=== PATIENT | female | born 1955 | race Caucasian/White ===

== ENCOUNTER → 2017-10-20 08:53 | Outpatient (CLI) | payer MEDICARE, SELFPAY ==
[2017-10-20 10:45] LABS: Cholesterol 150 mg/dL (200); Glucose 179 mg/dL (74-106); High Density Lipoprotein 40 mg/dL; Triglycerides 155 mg/dL; Very Low Density Lipoprotein 31 mg/dL (5-40)
== END ==
PROVIDERS: Family Provider Family Medicine; PCP Family Medicine; Visit Provider Family Medicine
DX: E11.9 Type 2 diabetes mellitus without complications (principal); E78.00 Pure hypercholesterolemia, unspecified
CPT/HCPCS: 36415; 80061; 82947; 83036

== ENCOUNTER 2018-01-29 12:46 | Outpatient (RCR) | payer MEDICARE, SELFPAY | END 2018-01-29 23:59 | LOC: DC 12:46 | PROVIDERS: Family Provider Family Medicine; PCP Family Medicine; Visit Provider Family Medicine | DX: E11.9 Type 2 diabetes mellitus without complications (principal); E78.00 Pure hypercholesterolemia, unspecified; Z71.3 Dietary counseling and surveillance | CPT/HCPCS: G0108 ==

== ENCOUNTER → 2018-11-06 08:03 | Outpatient (CLI) | payer MEDICARE, SELFPAY ==
[2018-11-06 10:26] LABS: Anion Gap 6 (5-15); BUN 11 mg/dL (7-18); BUN/Creat Ratio 12.3 RATIO (10-20); Calcium,Total 8.8 mg/dL (8.5-10.1); Chloride 108 mmol/L (98-107); Cholesterol 150 mg/dL (200); EST Glomerular Filtration Rate 67 mL/min (>60); Est Glom Filt Rate - Afr Amer 82 mL/min (>60); Glucose 144 mg/dL (74-106); Hemoglobin A1c 6.2 % (4.2-6.3); High Density Lipoprotein 40 mg/dL; Potassium 4.1 mmol/L (3.5-5.1); Sodium Level 140 mmol/L (136-145); Triglycerides 152 mg/dL; Very Low Density Lipoprotein 30 mg/dL (5-40)
== END ==
PROVIDERS: Family Provider Family Medicine; PCP Family Medicine; Referring Provider Family Medicine; Visit Provider Family Medicine
DX: E11.9 Type 2 diabetes mellitus without complications (principal); E78.00 Pure hypercholesterolemia, unspecified
CPT/HCPCS: 36415; 80048; 80061; 83036

== ENCOUNTER → 2019-05-06 07:27 | Outpatient (CLI) | payer MEDICARE, SELFPAY ==
[2019-05-06 10:39] LABS: AST(SGOT) 20 U/L (15-37); Alanine Aminotransfer ALT/SGPT 34 U/L (13-56); Albumin, Serum 3.7 g/dL (3.2-5.0); Alkaline Phosphatase 108 U/L (45-117); Anion Gap 5 (5-15); BUN 14 mg/dL (7-18); BUN/Creat Ratio 14.7 RATIO (10-20); Calcium,Total 8.9 mg/dL (8.5-10.1); Chloride 107 mmol/L (98-107); Creatinine, Serum 0.95 mg/dL (0.55-1.02); EST Glomerular Filtration Rate 63 mL/min (>60); Est Glom Filt Rate - Afr Amer 76 mL/min (>60); Globulin 3.7 g/dL (2.2-4.2); Glucose 145 mg/dL (74-106); Potassium 4.1 mmol/L (3.5-5.1); Protein, Total 7.4 g/dL (6.4-8.2); Sodium Level 140 mmol/L (136-145)
[2019-05-06 10:43] LABS: Hemoglobin A1c 6.1 % (4.2-6.3)
== END ==
PROVIDERS: Family Provider Family Medicine; PCP Family Medicine; Referring Provider Family Medicine; Visit Provider Family Medicine
DX: E11.9 Type 2 diabetes mellitus without complications (principal)
CPT/HCPCS: 36415; 80053; 83036

== ENCOUNTER → 2020-02-03 08:52 | Outpatient (CLI) | payer MEDICARE, SELFPAY ==
[2020-02-03 10:18] LABS: ALB/GLOB Ratio 0.9 RATIO (0.9-2.4); AST(SGOT) 21 U/L (15-37); Alanine Aminotransfer ALT/SGPT 27 U/L (13-56); Albumin, Serum 3.5 g/dL (3.2-5.0); Alkaline Phosphatase 103 U/L (45-117); Anion Gap 4 (5-15); BUN 12 mg/dL (7-18); Calcium,Total 8.7 mg/dL (8.5-10.1); Chloride 106 mmol/L (98-107); Cholesterol 172 mg/dL (200); Creatinine, Serum 0.86 mg/dL (0.55-1.02); EST Glomerular Filtration Rate 71 mL/min (>60); Est Glom Filt Rate - Afr Amer 86 mL/min (>60); Glucose 154 mg/dL (74-106); High Density Lipoprotein 41 mg/dL; Protein, Total 7.5 g/dL (6.4-8.2); Sodium Level 140 mmol/L (136-145); Triglycerides 155 mg/dL; Very Low Density Lipoprotein 31 mg/dL (5-40)
[2020-02-03 10:25] LABS: Hemoglobin A1c 6.5 % (3.8-5.6)
== END ==
PROVIDERS: PCP Family Medicine; Referring Provider Family Medicine; Visit Provider Family Medicine
DX: E11.9 Type 2 diabetes mellitus without complications (principal); E78.00 Pure hypercholesterolemia, unspecified
CPT/HCPCS: 36415; 80053; 80061; 83036

== ENCOUNTER → 2020-03-07 | Outpatient (CLI) | payer MEDICARE, SELFPAY ==
[2020-03-07 15:13] LABS: Color, Urine Yellow (Yellow); Glucose, Dipstick Normal (Normal); Ketone-Dipstick 5 mg/dl (Negative); Leukocyte Esterase-Dipstick Negative /ul (Negative); Nitrite-Dipstick Negative (Negative); Occult Blood-Urine Negative /ul (Negative); Protein-Dipstick 15 mg/dl (Negative); Urine Bilirubin Dipstick Negative (Negative); Urine Clarity Sl. Cloudy (Clear); Urine Urobilinogen Normal (Normal)
[2020-03-10 20:34] LABS: HPV Reflexed? NOT INDICATED
== END | disposition home or self-care (01) ==
LOC: LABSPEC 14:00
PROVIDERS: PCP Family Medicine; Referring Provider Family Medicine; Visit Provider Registered Nurse
DX: Z01.419 Encounter for gynecological examination (general) (routine) without abnormal findings (principal); R30.0 Dysuria
CPT/HCPCS: 81002; 87086; 88175; G0145

== ENCOUNTER → 2020-08-02 | Outpatient (CLI) | payer MEDICARE, SELFPAY | END | disposition home or self-care (01) | PROVIDERS: PCP Family Medicine; Referring Provider Family Medicine; Visit Provider Family Medicine | DX: Z11.52 Encounter for screening for COVID-19 (principal) | CPT/HCPCS: 87635; U0005; U0003 ==

== ENCOUNTER → 2020-08-10 12:27 | Outpatient (CLI) | payer MEDICARE, SELFPAY ==
--- NOTE | 2020-08-10 12:29 | RAD_ITS ---
STUDY: X-RAY CHEST REASON FOR EXAM: Female, 65 years old. Chronic cough. TECHNIQUE: Frontal and lateral views of the chest. COMPARISON: None. FINDINGS: Mild hyperexpansion with scattered healed granulomatous calcifications. There is no demonstrated pleural abnormality. Borderline cardiomegaly. Normal mediastinum and linda. Normal visualized pulmonary arteries. Aortic calcification. Normal visualized thoracic spine. Normal visualized ribs, clavicles, and shoulders. There is no demonstrated abnormality of the visualized soft tissue structures of the upper abdomen. RAD/Chest PA and Lateral IMPRESSION: Mild cardiomegaly with mild hyperexpansion and no acute or active cardiopulmonary disease. Electronically Signed: Ifeanyi Virgen MD at 12:47 EST , Service support ,
== END ==
PROVIDERS: PCP Family Medicine; Referring Provider Family Medicine; Visit Provider Family Medicine
DX: R05 Cough (principal)
CPT/HCPCS: 71046

== ENCOUNTER → 2020-08-22 08:32 | Outpatient (CLI) | payer MEDICARE, SELFPAY ==
--- NOTE | 2020-08-23 10:17 | PFT ---
INTRODUCTION: The patient is a 65-year-old female that presents for pulmonary function studies secondary to a diagnosis of chronic cough. Respiratory therapy reports good patient effort. Bronchodilators were used during testing. INTERPRETATION: Forced expiration spirometry demonstrates no evidence of a large airways obstructive ventilatory defect. There was no significant response to aerosolized bronchodilators, based upon strict ATS criteria. Spirograms are of good quality and plateau normally. Body plethysmography was performed and reveals lung volumes to be within normal limits. Diffusing capacity by single breath CO is reduced at 62% of predicted. IMPRESSION: Isolated reduction in diffusing capacity, which could be related to an underlying pulmonary vascular disorder such as pulmonary hypertension. There are no previous pulmonary function studies available for comparison.
== END ==
PROVIDERS: PCP Family Medicine; Referring Provider Family Medicine; Visit Provider Family Medicine
DX: R05 Cough (principal)
CPT/HCPCS: 94060; 94726; 94729

== ENCOUNTER 2020-09-18 12:03 | Emergency (ER) | payer MEDICARE, SELFPAY ==
[2020-09-18 12:04] VITALS: BP 119/71; PULSE 84; RESP 14; TEMP 36.6; O2SAT 98; BMI 40.1
--- NOTE | 2020-09-18 12:30 | ED.DCSUM_ITS ---
History of Present Illness Chief Complaint: Lower Extremity Injury Informant: Patient, Family Narrative: 65-year-old female presents for the evaluation of right knee injury. She tells me that yesterday she slipped in her kitchen and fell down. She is unsure how she landed. She notes pain over the medial aspect of the knee. She states it is painful for her to try to straighten it and she cannot bear weight. She was hoping it would be better by morning but it was not so she came to the emergency department. She has no prior orthopedic surgeries. She denies any other injuries. Past Medical History - Allergies and Home Meds Allergies/Adverse Reactions: Allergies No Known Allergies Allergy (Verified 09/18/20 12:06) Primary Care Physician: Glen Schultz MD [Primary Care Provider] - Surgical History: noncontributory Smoking Status: Unknown if ever smoked Drugs: None Review of Systems General: Denies: Chills, Fever, Sweats Eyes: Denies: Visual changes - bilaterally, Diplopia ENT: Denies: Rhinorrhea, Sore throat Cardiovascular: Denies: Chest pain, Palpitations Respiratory: Denies: Dyspnea, Cough, Dyspnea on exertion Gastrointestinal: Denies: Abdominal pain, Nausea, Vomiting, Diarrhea, Melena, Hematochezia Genitourinary: Denies: Dysuria, Hematuria, Frequency Musculoskeletal: Reports: Swelling, Extremity Pain. Denies: Back pain Skin: Denies: Rash, Wounds Neurological: Denies: Headache, Weakness, Numbness Physical Exam Vital Signs/Narrative: Vital Signs Temp Pulse Resp BP Pulse Ox 09/18/20 12:04 97.8 F 84 14 119/71 98 Inital Vital Signs reviewed: Yes General: Well nourished, Well developed, No Acute Distress Head: Normocephalic, Atraumatic Eyes: Perrl, EOMI ENT: Moist mucous membranes, No rhinorrhea Neck: Supple, Nontender Cardiovascular: Regular rate, Regular rhythm, No murmurs Respiratory: No distress, CTA bilaterally, Chest nontender Abdomen: Soft, Nontender, Nondistended, Normal bowel sounds Back: Nontender, Normal Inspection Extremities: Tenderness - To palpation diffusely over the medial aspect of the right knee. Patient holds the knee in flexion. She resist any type of movement. Because of her guarding I am unable to get a confident assessment of her ligaments. I do not appreciate an effusion. Extensor mechanism is intact. Skin: Normal color, No rash Neurological: Alert, Oriented x3, Cranial nerves II-XII grossly intact, Normal Strength, Normal Sensation Psychological: Normal affect, Normal Mood Diagnostic/Tx/Re-eval Clinical Impression(s) from Imaging Studies Knee X-Ray 09/18/20 12:34 IMPRESSION: Normal x-ray examination of the right knee. Electronically Signed: John Tolbert MD at 12:55 EDT Tel , Service support , - Medical Decision Making My interpretation of the plain films of the right knee is no acute fracture. Patient's exam is limited due to her guarding. On a recommend Freddie wrap crutches anti-inflammatories ice and rest. If no improvement she is to follow-up with orthopedics. We talked about potential internal derangement such as ligamentous or meniscal injuries. ED Disposition - Plan for ED Patient: Disposition: Home or Assisted Living Diagnosis: Right knee sprain Instructions: ED Knee Sprain Prescriptions: Hydrocodone Bitart/Apap 5-325 [[place] 5MG-325MG] 1 tablet PO Q6H PRN PRN 3 Days #10 tab PRN Reason: Pain Prescription Printed Referrals: Glen Schultz MD [Primary Care Provider] - 10-14 Days if not better Jordan Montiel MD [STAFF PHYSICIAN] - 10-14 Days if not better
--- NOTE | 2020-09-18 12:34 | RAD_ITS ---
STUDY: X-RAY - RIGHT KNEE REASON FOR EXAM: Unable to bear weight and straightening leg, right knee injury yesterday. TECHNIQUE: 4 view(s) of the knee. COMPARISON: None. FINDINGS: Normal visualized distal femur. Normal visualized proximal tibia and fibula. Normal proximal tibiofibular articulation. Normal medial femorotibial compartment. Normal lateral femorotibial compartment. Normal patellofemoral articulation. The soft tissue structures are unremarkable. RAD/Knee 4 or More Views IMPRESSION: Normal x-ray examination of the right knee. Electronically Signed: Jonh Tolbert MD at 12:55 EDT Tel , Service support ,
== END 2020-09-18 13:47 | disposition home or self-care (01) ==
PROVIDERS: Emergency Provider Emergency Medicine; PCP Family Medicine
DX: S83.91XA Sprain of unspecified site of right knee, initial encounter (principal); W01.0XXA Fall on same level from slipping, tripping and stumbling without subsequent striking against object, initial encounter; Y93.9 Activity, unspecified; Y92.000 Kitchen of unspecified non-institutional (private) residence as the place of occurrence of the external cause; Y99.9 Unspecified external cause status; Z79.84 Long term (current) use of oral hypoglycemic drugs; Z79.899 Other long term (current) drug therapy
CPT/HCPCS: 73564; 99283

== ENCOUNTER → 2021-10-04 | Outpatient (CLI) | payer MEDICARE, SELFPAY ==
[2021-10-04 12:30] LABS: Absolute Lymphocyte Count 2.26 X10^3/uL (0.83-4.51); Absolute Neutrophil Count 5.3 X10^3/uL (2.0-7.7); Basophil# 0.08 X10^3/uL; Eosinophils% 3.6 % (0-5); Hematocrit 39.4 % (37-47); Hemoglobin 13.2 g/dL (12.0-15.0); Lymphocyte # 2.26 X10^3/ul (0.83-4.51); Lymphocyte % 26.8 % (19-41); Mean Corp Hgb Conc 33.5 g/dL (32-36); Mean Corpuscular Hgb 27.2 pg (27.0-32.0); Mean Corpuscular Volume 81.1 fL (81-99); Mean Platelet Vol. 11.2 fl (6.2-12.0); Monocyte% 5.9 % (0-10); NRBC Flagged by Analyzer 0 % (0-5); Neutrophil # 5.25 X10^3/uL (2.7-7.7); Neutrophil % 62.3 % (47-70); POSITIVE COUNT YES; RBC Distribution Width CV 14.2 % (11.6-14.6); RBC Distribution Width SD 41.2 fl (35.1-43.9); Red Blood Count 4.86 M/mm3 (4.2-5.4); White Blood Count 8.4 K/mm3 (4.4-11.0)
[2021-10-04 12:41] LABS: ALB/GLOB Ratio 0.9 RATIO (0.9-2.4); AST(SGOT) 21 U/L (15-37); Alanine Aminotransfer ALT/SGPT 29 U/L (13-56); Albumin, Serum 3.7 g/dL (3.2-5.0); Alkaline Phosphatase 107 U/L (45-117); Anion Gap 8 (5-15); BUN 12 mg/dL (7-18); BUN/Creat Ratio 12.6 RATIO (10-20); Calcium,Total 8.8 mg/dL (8.5-10.1); Chloride 107 mmol/L (98-107); Cholesterol 166 mg/dL (200); Creatinine, Serum 0.95 mg/dL (0.55-1.02); EST Glomerular Filtration Rate 62 mL/min (>60); Est Glom Filt Rate - Afr Amer 75 mL/min (>60); Globulin 4.1 g/dL (2.2-4.2); Glucose 134 mg/dL (74-106); High Density Lipoprotein 42 mg/dL; Potassium 4.2 mmol/L (3.5-5.1); Protein, Total 7.8 g/dL (6.4-8.2); Sodium Level 141 mmol/L (136-145); Triglycerides 132 mg/dL; Very Low Density Lipoprotein 26 mg/dL (5-40)
[2021-10-04 13:19] LABS: Differential Indicated SCAN CRITERIA MET
[2021-10-04 13:26] LABS: Differential Comment SCANNED; Platelet Estimate ADEQUATE (ADEQ)
== END | disposition home or self-care (01) ==
LOC: MTLAB 10:06
PROVIDERS: PCP Family Medicine; Referring Provider Family Medicine; Visit Provider Family Medicine
DX: I10 Essential (primary) hypertension (principal); E11.9 Type 2 diabetes mellitus without complications
CPT/HCPCS: 36415; 80053; 80061; 85025

== ENCOUNTER → 2022-02-25 | Outpatient (CLI) | payer MEDICARE, SELFPAY ==
--- NOTE | 2022-02-25 12:35 | RAD_ITS ---
EXAM: XR CHEST, 2 VIEWS CLINICAL INDICATION: LEFT POSTERIOR CHEST PAIN TECHNIQUE: Frontal and lateral views of the chest. This report was created using [employer] report generation technology. COMPARISON: August 10, 2020. FINDINGS: LUNGS AND PLEURAL SPACES: Similar appearance of mildly prominent left epicardial fat pad. Stable slight linear atelectasis or scarring adjacent to the right lateral pleura. No pneumothorax. No effusion. HEART: Unremarkable. Cardiac silhouette not enlarged. MEDIASTINUM: Central airways and mediastinal contour are unremarkable. BONES/JOINTS: Unremarkable. SOFT TISSUES: Unremarkable. RAD/Chest PA and Lateral IMPRESSION: Stable chest. No convincing infiltrates or effusions. Electronically Signed: Jacque Colvin MD at 7:12 EDT ,
== END | disposition home or self-care (01) ==
PROVIDERS: PCP Family Medicine; Referring Provider Family Medicine; Visit Provider Family Medicine
DX: R07.9 Chest pain, unspecified (principal)
CPT/HCPCS: 71046

== ENCOUNTER 2022-04-27 08:31 | Observation (INO) | payer MEDICARE, SELFPAY ==
[2022-04-27] VITALS (14 sets, daily range): BP systolic 122–153; BP diastolic 49–73; PULSE 63–93; RESP 16–21; TEMP 36.6–37.4; O2SAT 90–98; BMI 36.8
--- NOTE | 2022-04-27 08:44 | EX.ED.DYSGE1 ---
HPI History of Present Illness Chief Complaint: General Illness Informant: patient and EMS Narrative Narrative: 67-year-old female presenting to the emergency room with flulike symptoms. Patient called EMS today while experiencing body aches headache cough sore throat posttussive emesis and subjective fever. She has been taking children's aspirin. She is unsure of exactly what that medicine is. She notes that she has nausea at the current time. Her has dementia and is accompanying her. [facility] Medical History Diabetes High cholesterol Home Medications albuterol sulfate 90 mcg/actuation aerosol inhaler 1 - 2 puff inhalation Q4H PRN PRN Wheezing 09/18/20 [History Last Taken Unknown] dulaglutide 1.5 mg/0.5 mL subcutaneous pen injector 1.5 mg SQ QWEEK 09/18/20 [History Last Taken Unknown] glimepiride 4 mg tablet 4 mg PO BID 09/18/20 [History Last Taken Unknown] loratadine 10 mg capsule 10 mg PO BID 09/18/20 [History Last Taken Unknown] losartan 50 mg tablet 20 mg PO DAILY 09/18/20 [History Last Taken Unknown] omeprazole 40 mg capsule,delayed release 40 mg PO DAILY 04/27/22 [History Last Taken Unknown] pioglitazone 30 mg tablet 30 mg PO BID 04/27/22 [History Last Taken Unknown] Allergy/AdvReac Type Severity Reaction Status Date / Time No Known Allergies Allergy Verified 04/27/22 08:37 Surgical History H/O: hysterectomy Previous back surgery Social History (Updated 04/27/22 @ 08:[address] Billy Camejo DO) Smoking Status: Former smoker substance use type: does not use ROS ROS ED Constitutional Constitutional ED: Reports chills, fever(s), subjective and sweats; Denies weight loss Eyes Eyes: Denies change in vision or diplopia ENT ENT ED: Reports rhinorrhea and sore throat; Denies ear pain Cardiovascular Cardiovascular: Denies chest pain, orthopnea, palpitations or racing heartbeat Respiratory/Chest Respiratory/Chest: Reports cough; Denies dyspnea or orthopnea Gastrointestinal Gastrointestinal: Reports nausea and vomiting; Denies abdominal pain or diarrhea Genitourinary Genitourinary ED: Denies dysuria, hematuria or urinary frequency Musculoskeletal Musculoskeletal: Reports myalgias; Denies arthralgias Integumentary Denies abscess or rash Neurologic Neurologic: Reports headache(s); Denies weakness Psychiatric Psychiatric: Denies anxiety, depression, suicidal ideation or suicidal thoughts Endocrine Endocrinology: Denies polydipsia, polyphagia or polyuria Allergic/Immunologic Allergic/Immunologic ED: Denies mouth swelling, tongue swelling or urticaria EXAM Physical Exam Const Vital Signs: 04/27/22 08:31 04/27/22 08:34 04/27/22 09:47 Temperature 99.3 F H 99.3 F H Temperature Source Oral Oral Pulse Rate 89 89 90 Respiratory Rate 20 H 20 H 16 Blood Pressure 153/73 H 153/73 H Blood Pressure Mean 99 99 Pulse Ox 90 90 Oxygen Delivery Method Room Air Room Air Oxygen Flow Rate (L/min) 04/27/22 09:47 04/27/22 10:06 Temperature 98.6 F Temperature Source Oral Pulse Rate 81 Respiratory Rate 17 Blood Pressure 153/72 H Blood Pressure Mean 99 Pulse Ox 94 94 Oxygen Delivery Method Nasal Cannula Nasal Cannula Oxygen Flow Rate (L/min) 2 2 Positive well nourished and well developed General Appearance ED: well developed HEENT Reports normocephalic, head/scalp atraumatic and moist mucous membranes Eyes PERRL and EOMs intact bilaterally Neck no lymphadenopathy, supple and no JVD Resp normal respiratory effort and clear to auscultation bilaterally Cardio regular rate, regular rhythm and no murmurs GI normal to inspection, nondistended, normoactive bowel sounds and non-tender Palpation: soft Back/Spine no CVA tenderness and normal ROM Extremity normal to inspection General Extremety ED: Negative for edema General Extremity: Negative for edema Neuro oriented x3 and CN's II-XII intact bilaterally Sensorium / Orientation: alert Motor Exam: strength 5/5 throughout Psych mental status grossly normal Mood & Affect: Negative for depressed or tearful Skin no rashes or lesions noted and no wounds MDM MDM MDM Narrative Medical decision making narrative: Basic blood work was obtained and was negative. My interpretation of the chest x-ray is most call infiltrates. EKG is a sinus rhythm. Blood cultures were obtained. Patient received a breathing treatment Tylenol and then ceftriaxone and azithromycin after blood cultures. Patient is still requiring 3 L nasal cannula to keep her saturations at 88% or above. Plan is admission. Lab Data Attestation: I reviewed the patient's lab results. Labs: Laboratory Results - last 24 hr 04/27/22 04/27/22 04/27/22 09:45 09:45 09:45 WBC 7.9 RBC 4.75 Hgb 13.0 Hct 40.0 MCV 84.2 MCH 27.4 MCHC 32.5 RDW Std Deviation 45.6 H RDW Coeff of Marilyn 14.7 H Plt Count 218 MPV 9.9 Immature Gran % (Auto) 0.400 Neut % (Auto) 74.4 H Lymph % (Auto) 14.3 L [place] % (Auto) 10.4 H Eos % (Auto) 0.1 Baso % (Auto) 0.4 Absolute Neuts (auto) 5.9 Absolute Lymphs (auto) 1.13 Nucleated RBC % 0 Sodium 138 Potassium 3.8 Chloride 104 Carbon Dioxide 28.0 Anion Gap 6 BUN 15 Creatinine 0.89 Estim Creat Clear Calc 55.19 Est GFR (MDRD) Af Amer 81 Est GFR (MDRD) Non-Af 67 BUN/Creatinine Ratio 16.8 Glucose 179 H Lactic Acid 1.4 Calcium 9.0 Total Bilirubin 1.90 H AST 30 ALT 29 Alkaline Phosphatase 74 Total Protein 7.7 Albumin 3.4 Globulin 4.3 H Albumin/Globulin Ratio 0.8 L Radiography Diagnostic Testing: Clinical Impression(s) from Imaging Studies Chest X-Ray 04/27/22 08:51 IMPRESSION: New nodular and patchy alveolar opacities in the mid to lower lungs, concerning for pneumonia. Recommend follow-up to resolution to exclude pulmonary nodules. Electronically Signed: Marilia John MD at 9:15 EST , Discharge Plan Dx/Rx/DC Orders Clinical Impression: Pneumonia, Acute hypoxemic respiratory failure Disposition Disposition: [facility]
[2022-04-27] MEDS: Acetaminophen 650 MG/20 ML UDC PO ×2 (08:50→17:18)
--- NOTE | 2022-04-27 08:51 | RAD_ITS ---
HISTORY: cough. TECHNIQUE: XR Chest 1 View. COMPARISON: 02/25/2022. FINDINGS: CARDIOMEDIASTINAL BORDERS: Cardiac silhouette within normal limits in size. Mediastinal contour unremarkable. LUNGS: New nodular and patchy alveolar opacities in the mid to lower lungs bilaterally. PLEURA: No pleural effusion or pneumothorax seen. OSSEOUS STRUCTURES: Unremarkable. RAD/Chest 1 View (Portable) IMPRESSION: New nodular and patchy alveolar opacities in the mid to lower lungs, concerning for pneumonia. Recommend follow-up to resolution to exclude pulmonary nodules. Electronically Signed: Marilia John MD at 9:15 EST ,
[2022-04-27] MEDS: Ipratropium/Albuterol Sulfate 3 ML AMPUL.NEB INHALATION ×3 (09:43→19:22)
[2022-04-27 09:59] LABS: Absolute Lymphocyte Count 1.13 X10^3/uL (0.83-4.51); Absolute Neutrophil Count 5.9 X10^3/uL (2.0-7.7); Basophil# 0.03 X10^3/uL; Basophil% 0.4 % (0-1); Eosinophil# 0.01 X10^3/uL; Eosinophils% 0.1 % (0-5); Lymphocyte # 1.13 X10^3/ul (0.83-4.51); Lymphocyte % 14.3 % (19-41); Mean Corp Hgb Conc 32.5 g/dL (32-36); Mean Corpuscular Hgb 27.4 pg (27.0-32.0); Mean Corpuscular Volume 84.2 fL (81-99); Mean Platelet Vol. 9.9 fl (6.2-12.0); Monocyte# 0.82 X10^3/uL; Monocyte% 10.4 % (0-10); NRBC Flagged by Analyzer 0 % (0-5); Neutrophil % 74.4 % (47-70); Platelet Count 218 K/mm3 (150-450); RBC Distribution Width CV 14.7 % (11.6-14.6); RBC Distribution Width SD 45.6 fl (35.1-43.9); Red Blood Count 4.75 M/mm3 (4.2-5.4); White Blood Count 7.9 K/mm3 (4.4-11.0)
[2022-04-27] MEDS: Ceftriaxone 1 GM/50 ML BAG IV (10:11)
[2022-04-27 10:22] LABS: ALB/GLOB Ratio 0.8 RATIO (0.9-2.4); AST(SGOT) 30 U/L (15-37); Alanine Aminotransfer ALT/SGPT 29 U/L (13-56); Albumin, Serum 3.4 g/dL (3.2-5.0); Alkaline Phosphatase 74 U/L (45-117); Anion Gap 6 (5-15); BUN 15 mg/dL (7-18); BUN/Creat Ratio 16.8 RATIO (10-20); Chloride 104 mmol/L (98-107); Creatinine, Serum 0.89 mg/dL (0.55-1.02); EST Glomerular Filtration Rate 67 mL/min (>60); Est Glom Filt Rate - Afr Amer 81 mL/min (>60); Estimated Creatinine Clearance 55.19 ml/min; Globulin 4.3 g/dL (2.2-4.2); Glucose 179 mg/dL (74-106); Potassium 3.8 mmol/L (3.5-5.1); Protein, Total 7.7 g/dL (6.4-8.2); Sodium Level 138 mmol/L (136-145)
[2022-04-27 10:34] LABS: Lactic Acid 1.4 mmol/L (0.4-1.9)
--- NOTE | 2022-04-27 11:06 | PCM.HP.STD ---
HPI - General General Date of Admission: 04/27/22 Date of Service: 04/27/22 Chief Complaint: SOB - 5 days HPI Brennon NEAL, is a 67 F who presents as of breath ongoing for 5 days. Patient has past medical history of type II DM, hypertension who comes in with upper respiratory symptoms ongoing for 5 days associated with some fever and chills. Denies any sick contact. 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 Denied any diarrhea nausea vomiting or chest pain. She comes into the emergency room because she feels really unwell. She admits to cough that is dry. Her vitals on admission showed blood pressure 153/73, heart rate 89, respiratory 20, temperature 99.3 F, oxygen sat was 90% on room air, improved to 98% on 2 L of oxygen. Admitting CBCD is unremarkable. COVID-19 rapid antigen test as well as influenza was negative. COVID-19 PCR is pending. Blood cultures are pending. Admitting chest x-ray shows new nodular and patchy alveolar opacities in the mid to lower lung concerning for pneumonia. [facility] Medical History Diabetes High cholesterol Home Medications albuterol sulfate 90 mcg/actuation aerosol inhaler 1 - 2 puff inhalation Q4H PRN PRN Wheezing 09/18/20 [History Last Taken Unknown] dulaglutide 1.5 mg/0.5 mL subcutaneous pen injector 1.5 mg SQ QWEEK 09/18/20 [History Last Taken Unknown] glimepiride 4 mg tablet 4 mg PO BID 09/18/20 [History Last Taken Unknown] loratadine 10 mg capsule 10 mg PO BID 09/18/20 [History Last Taken Unknown] losartan 50 mg tablet 20 mg PO DAILY 09/18/20 [History Last Taken Unknown] omeprazole 40 mg capsule,delayed release 40 mg PO DAILY 04/27/22 [History Last Taken Unknown] pioglitazone 30 mg tablet 30 mg PO BID 04/27/22 [History Last Taken Unknown] Allergy/AdvReac Type Severity Reaction Status Date / Time No Known Allergies Allergy Verified 04/27/22 08:37 Family History (Updated 04/27/22 @ 12:[address] Va Branham MD) Mother No problems noted. Father No problems noted. Surgical History H/O: hysterectomy Previous back surgery Social History (Updated 04/27/22 @ 12:[address] Va Branham MD) household members: spouse Smoking Status: Former smoker alcohol intake: never substance use type: does not use Vital Signs Vital Signs Vital Signs: 04/27/22 08:31 04/27/22 08:34 04/27/22 09:47 Temperature 99.3 F H 99.3 F H Temperature Source Oral Oral Pulse Rate 89 89 90 Respiratory Rate 20 H 20 H 16 Respiratory Effort Respiratory Pattern Blood Pressure 153/73 H 153/73 H Blood Pressure Mean 99 99 Pulse Ox 90 90 Oxygen Delivery Method Room Air Room Air Oxygen Flow Rate (L/min) 04/27/22 09:47 04/27/22 10:06 04/27/22 11:02 Temperature 98.6 F 97.8 F Temperature Source Oral Oral Pulse Rate 81 84 Respiratory Rate 17 16 Respiratory Effort Respiratory Pattern Blood Pressure 153/72 H 127/57 H Blood Pressure Mean 99 80 Pulse Ox 94 94 95 Oxygen Delivery Method Nasal Cannula Nasal Cannula Nasal Cannula Oxygen Flow Rate (L/min) 2 2 2 04/27/22 11:04 Temperature Temperature Source Pulse Rate Respiratory Rate Respiratory Effort Short of Breath Labored Respiratory Pattern Normal Blood Pressure Blood Pressure Mean Pulse Ox Oxygen Delivery Method Oxygen Flow Rate (L/min) Weight Weight: 100.3 kg Body Mass Index (BMI) 36.8 Physical Exam Narrative Physical exam: General: Alert, Oriented x3, Cooperative, No apparent distress HEENT: Atraumatic Oral: Moist Mucosa Neck: Supple Lungs: Clear to auscultation Cardiovascular: HS I+II, regular, no murmurs Abdomen: Bowel Sounds Present, Soft, Non Tender Extremities: No edema Skin: No rashes, No breakdown Neurological: Grossly intact Psych/Mental Status: Appropriate Results Lab / Micro Data Result Diagrams: 04/27/22 09:45 04/27/22 09:45 Labs: Laboratory Results - last 24 hr 04/27/22 09:45: Lactic Acid 1.4 04/27/22 09:45: WBC 7.9, RBC 4.75, Hgb 13.0, Hct 40.0, MCV 84.2, MCH 27.4, MCHC 32.5, RDW Std Deviation 45.6 H, RDW Coeff of Marilyn 14.7 H, Plt Count 218, MPV 9.9, Immature Gran % (Auto) 0.400, Neut % (Auto) 74.4 H, Lymph % (Auto) 14.3 L, [place] % (Auto) 10.4 H, Eos % (Auto) 0.1, Baso % (Auto) 0.4, Absolute Neuts (auto) 5.9, Absolute Lymphs (auto) 1.13, Nucleated RBC % 0 04/27/22 09:45: Sodium 138, Potassium 3.8, Chloride 104, Carbon Dioxide 28.0, Anion Gap 6, BUN 15, Creatinine 0.89, Estim Creat Clear Calc 55.19, Est GFR (MDRD) Af Amer 81, Est GFR (MDRD) Non-Af 67, BUN/Creatinine Ratio 16.8, Glucose 179 H, Calcium 9.0, Total Bilirubin 1.90 H, AST 30, ALT 29, Alkaline Phosphatase 74, Total Protein 7.7, Albumin 3.4, Globulin 4.3 H, Albumin/Globulin Ratio 0.8 L Micro: Microbiology 04/27/22 08:38 Nasal Secretion SARS-CoV-2 & FLU Antigen (Rapid) - Final Radiology Impression Chest X-Ray 04/27/22 08:51 IMPRESSION: New nodular and patchy alveolar opacities in the mid to lower lungs, concerning for pneumonia. Recommend follow-up to resolution to exclude pulmonary nodules. Electronically Signed: Marilia John MD at 9:15 EST Reading Location ID and State: [facility] / [place] Tel , Service support , Assessment & Plan Assessment/Plan (1) Pneumonia: (2) Hypoxia: PLAN: Plan 1. Acute hypoxia secondary to acute pneumonia Patient is currently on 2 L of oxygen Continue to wean for SPO2 more than 94%, breathing treatment, encourage use of incentive spirometer 2. Acute pneumonia, community-acquired, COVID-19 rapid antigen is negative, influenza a/B, COVID-19 PCR is pending We will continue on IV ceftriaxone and azithromycin Check urine Legionella and streptococcal antigen 3. Hypertension patient, controlled, continue losartan 4. Type II DM, continue on pioglitazone, glimepiride Trulicity on hold, continue with insulin sliding scale with blood glucose checks 5. DVT prophylaxis- heparin subcu Charges/Coding Visit Charges Inpatient E&M: 57511 Init Hosp L3
[2022-04-27] MEDS: Albuterol 2.5 MG/3 ML VIAL.NEB. INHALATION (11:07)
[2022-04-27] MEDS: Ondansetron 4 MG/2 ML Vial IV ×2 (11:19→16:39)
[2022-04-27] MEDS: 0.9% Normal Saline 1,000 ML 75 ML IV (13:15)
[2022-04-27] MEDS: Heparin Injection (Vial) 5,000 UNIT/ML VIAL 5000 UNIT SC ×2 (14:47→21:45)
[2022-04-27 16:50] LABS: Bedside Glucose 125 mg/dL (74-106)
[2022-04-27 16:50] LABS: Bedside Glucose 183 mg/dL (74-106)
[2022-04-27] MEDS: Glimepiride 4 MG Tablet PO (17:17)
[2022-04-27] MEDS: BENZOCAINE/MENTHOL 1 LOZENGE MUCOUS MEM (22:36)
[2022-04-27] MEDS: proCHLORPERazine 10 MG/2 ML Vial 5 MG IV (22:36)
[2022-04-27 22:51] LABS: Bedside Glucose 151 mg/dL (74-106)
[2022-04-28] MEDS: 0.9% Normal Saline 1,000 ML 75 ML IV (02:17)
[2022-04-28 02:20] VITALS: BP 134/99; PULSE 84; RESP 18; TEMP 37; O2SAT 92
[2022-04-28] MEDS: Ondansetron 4 MG/2 ML Vial IV (04:55)
[2022-04-28 05:25] VITALS: BP 134/99; PULSE 84; RESP 18; TEMP 37; O2SAT 92
[2022-04-28] MEDS: Heparin Injection (Vial) 5,000 UNIT/ML VIAL 5000 UNIT SC (05:59)
[2022-04-28] MEDS: proCHLORPERazine 10 MG/2 ML Vial 5 MG IV (05:59)
[2022-04-28 06:02] LABS: Absolute Lymphocyte Count 1.79 X10^3/uL (0.83-4.51); Absolute Neutrophil Count 3.4 X10^3/uL (2.0-7.7); Basophil# 0.02 X10^3/uL; Basophil% 0.3 % (0-1); Eosinophils% 1.6 % (0-5); Hematocrit 36.4 % (37-47); Hemoglobin 11.2 g/dL (12.0-15.0); Lymphocyte # 1.79 X10^3/ul (0.83-4.51); Lymphocyte % 29.4 % (19-41); Mean Corp Hgb Conc 30.8 g/dL (32-36); Mean Corpuscular Hgb 26.6 pg (27.0-32.0); Mean Corpuscular Volume 86.5 fL (81-99); Mean Platelet Vol. 10.8 fl (6.2-12.0); Monocyte# 0.71 X10^3/uL; Monocyte% 11.7 % (0-10); NRBC Flagged by Analyzer 0 % (0-5); Neutrophil # 3.43 X10^3/uL (2.7-7.7); Neutrophil % 56.5 % (47-70); Platelet Count 217 K/mm3 (150-450); RBC Distribution Width SD 47.7 fl (35.1-43.9); Red Blood Count 4.21 M/mm3 (4.2-5.4); White Blood Count 6.1 K/mm3 (4.4-11.0)
[2022-04-28 06:25] LABS: Bedside Glucose 128 mg/dL (74-106)
[2022-04-28 06:29] LABS: ALB/GLOB Ratio 0.8 RATIO (0.9-2.4); AST(SGOT) 33 U/L (15-37); Alanine Aminotransfer ALT/SGPT 34 U/L (13-56); Albumin, Serum 2.8 g/dL (3.2-5.0); Alkaline Phosphatase 57 U/L (45-117); Anion Gap 5 (5-15); BUN 10 mg/dL (7-18); BUN/Creat Ratio 12.5 RATIO (10-20); Calcium,Total 8.3 mg/dL (8.5-10.1); Chloride 107 mmol/L (98-107); EST Glomerular Filtration Rate 76 mL/min (>60); Est Glom Filt Rate - Afr Amer 92 mL/min (>60); Globulin 3.6 g/dL (2.2-4.2); Glucose 129 mg/dL (74-106); Potassium 3.7 mmol/L (3.5-5.1); Protein, Total 6.4 g/dL (6.4-8.2); Sodium Level 139 mmol/L (136-145)
[2022-04-28 06:58] VITALS: PULSE 87; RESP 19; O2SAT 91
[2022-04-28] MEDS: Ipratropium/Albuterol Sulfate 3 ML AMPUL.NEB INHALATION ×2 (06:58→11:23)
[2022-04-28] MEDS: Ceftriaxone 1 GM/50 ML BAG IV (08:22)
[2022-04-28 08:25] VITALS: BP 140/63; PULSE 72; RESP 19; TEMP 37.2; O2SAT 94
[2022-04-28 10:22] VITALS: O2SAT 94; O2SAT 96
--- NOTE | 2022-04-28 10:37 | DCINST_ITS ---
Discharge Instructions Diet Discharge Diet: Low fat / Low cholesterol, 1800 Calorie Control Diet and 2000 mg Sodium Diet Activity Discharge Activity: Return to Normal Activity Follow Up Care Test Results: Test results from this visit will be discussed in further detail at your follow- up appointment, if applicable. Discharge Plan Admission Admit Date/Time: 04/27/22 11:02 Primary Reason for Your Visit: Acute hypoxia/RSV pneumonia Attending Provider: Va Branham Primary Care Provider: Rose Pickard Instructions Additional Instructions / Restrictions: Continue to use incentive spirometer Complete your antibiotics Follow-up with your primary care doctor within 1 week Discharge Orders/Prescriptions Prescriptions: New pioglitazone 30 mg Tablet 30 mg PO DAILY Qty: 0 0RF amoxicillin-pot clavulanate [Augmentin] 500-125 mg tablet 1 tab PO BID 7 Days Qty: 14 0RF Continued losartan 50 MG tablet 20 mg PO DAILY glimepiride 4 MG tablet 4 mg PO BID albuterol sulfate 1 PUFF inhaler 1 - 2 puff INHALATION Q4H PRN PRN (Reason: Wheezing) dulaglutide 1.5 MG/0.5 ML pen injector 1.5 mg SQ QWEEK Label Comments: INJECT THE CONTENTS OF 1 PEN SUBCUTANEOUSLY ONCE A WEEK omeprazole 40 mg Capsule,Delayed Release(Dr/Ec) 40 mg PO DAILY Referrals / Follow Up: Rose Pickard MD [Primary Care Provider] - Disposition Disposition (needs filled in before D/C Order can be placed): Home, Self Care
[2022-04-28 11:16] LABS: Bedside Glucose 139 mg/dL (74-106)
[2022-04-28 11:23] VITALS: PULSE 71; RESP 18
--- NOTE | 2022-04-28 12:48 | DS.PCM_ITS ---
Providers Date of Admission: 04/27/22 Date of Discharge: 04/28/22 Primary Care Physician: Dr. Rose Pickard MD Reason For Visit: PNEUMONIA Diagnosis Discharge Diagnosis (1) Pneumonia: Status: Acute Code(s): J18.9 - Pneumonia, unspecified organism (2) Hypoxia: Status: Acute Code(s): R09.02 - Hypoxemia Plan 1. Acute hypoxia secondary to RSV pneumonia/community-acquired pneumonia 2. Hypertension 4. Type II DM Medications at Discharge Home Medications albuterol sulfate 90 mcg/actuation aerosol inhaler 1 - 2 puff inhalation Q4H PRN PRN Wheezing 09/18/20 dulaglutide 1.5 mg/0.5 mL subcutaneous pen injector 1.5 mg SQ QWEEK Check with primary doctor 09/18/20 glimepiride 4 mg tablet 4 mg PO BID Check with primary doctor 09/18/20 losartan 50 mg tablet 20 mg PO DAILY Check with primary doctor 09/18/20 omeprazole 40 mg capsule,delayed release 40 mg PO DAILY Check with primary doctor 04/27/22 amoxicillin 500 mg-potassium clavulanate 125 mg tablet (Augmentin) 1 tab PO BID 7 days #14 tabs 04/28/22 pioglitazone 30 mg tablet 30 mg PO DAILY #0 tabs 04/28/22 Hospital Course Operations None Procedures None Summary of Care Provided Minutes Spent on Discharge: 30 Hospital Course: 67-year-old female with past medical history of type II DM, hyperlipidemia who comes in with complaints of shortness of breath ongoing for about 5 days. Patient admits to upper respiratory illness with congestion, sore throat, cough as well as fever and chills. She denied any dizziness or diarrhea or nausea or vomiting. In the emergency room, her vitals were stable except for hypoxia. Her admitting blood work was unremarkable. COVID-19 rapid antigen test, COVID-19 PCR as well as influenza was negative. Respiratory panel was positive for RSV. Patient's chest x-ray was positive for new nodular and patchy alveolar opacities in the mid to lower lungs concerning for pneumonia. Patient was admitted to the [facility] floor and started on IV ceftriaxone and azithromycin. She was managed symptomatically. She generally improved and was off oxygen the next morning. This was faster than could be anticipated for her condition at time of admission. She did not require oxygen at time of discharge. She was discharged home on 5 days of Augmentin. She was asked to continue to use her incentive spirometer and follow-up with her primary care doctor. Physical Exam Narrative Physical exam: General: Alert, Oriented x3, Cooperative, not on oxygen HEENT: Atraumatic Oral: Moist Mucosa Neck: Supple Lungs: Diminished to auscultation Cardiovascular: HS I+II, regular, no murmurs Abdomen: Bowel Sounds Present, Soft, Non Tender Extremities: No edema Skin: No rashes, No breakdown Neurological: Grossly intact Psych/Mental Status: Appropriate Weight / BMI Weight Weight: 100.3 kg Body Mass Index (BMI) 36.8 ABG / Lab / Microbiology Data Result Diagrams: 04/28/22 04:54 04/28/22 04:54 Laboratory: Laboratory Results - last 24 hr 04/27/22 11:02: COVID-19 (PATRICK) Not Detected 04/27/22 12:53: POC Glucose 183 H 04/27/22 16:31: POC Glucose 125 H 04/27/22 21:35: POC Glucose 151 H 04/28/22 04:54: WBC 6.1, RBC 4.21, Hgb 11.2 L, Hct 36.4 L, MCV 86.5, MCH 26.6 L, MCHC 30.8 L D, RDW Std Deviation 47.7 H, RDW Coeff of Marilyn 15.0 H, Plt Count 217, MPV 10.8, Immature Gran % (Auto) 0.500, Neut % (Auto) 56.5, Lymph % (Auto) 29.4, [place] % (Auto) 11.7 H, Eos % (Auto) 1.6, Baso % (Auto) 0.3, Absolute Neuts (auto) 3.4, Absolute Lymphs (auto) 1.79, Nucleated RBC % 0 04/28/22 04:54: Sodium 139, Potassium 3.7, Chloride 107, Carbon Dioxide 27.0, Anion Gap 5, BUN 10, Creatinine 0.80, Estim Creat Clear Calc 61.40, Est GFR (MDRD) Af Amer 92, Est GFR (MDRD) Non-Af 76, BUN/Creatinine Ratio 12.5, Glucose 129 H, Calcium 8.3 L, Total Bilirubin 1.10 H, AST 33, ALT 34, Alkaline Phosphatase 57, Total Protein 6.4, Albumin 2.8 L, Globulin 3.6, Albumin/Globulin Ratio 0.8 L 04/28/22 06:02: POC Glucose 128 H 04/28/22 10:55: POC Glucose 139 H Microbiology: Microbiology 04/27/22 13:30 Mucosa - Nose Respiratory Panel (PCR) - Final RSV A 04/27/22 13:34 Urine, Random Streptococcus pneumoniae Antigen (M - Final 04/27/22 13:34 Urine, Random Legionella Antigen - Final 04/27/22 08:38 Nasal Secretion SARS-CoV-2 & FLU Antigen (Rapid) - Final D/C Instructions Discharge Diet: Low fat / Low cholesterol, 1800 Calorie Control Diet and 2000 mg Sodium Diet Meaningful Use Info Meaningful Use Diagnoses (Choose all that apply): None applicable Discharge Plan Admission Admit Date/Time: 04/27/22 11:02 Primary Reason for Your Visit: Acute hypoxia/RSV pneumonia Attending Provider: Va Branham Primary Care Provider: Rose Pickard Instructions Additional Instructions / Restrictions: Continue to use incentive spirometer Complete your antibiotics Follow-up with your primary care doctor within 1 week Discharge Orders/Prescriptions Prescriptions: New pioglitazone 30 mg Tablet 30 mg PO DAILY Qty: 0 0RF amoxicillin-pot clavulanate [Augmentin] 500-125 mg tablet 1 tab PO BID 7 Days Qty: 14 0RF Continued losartan 50 MG tablet 20 mg PO DAILY glimepiride 4 MG tablet 4 mg PO BID albuterol sulfate 1 PUFF inhaler 1 - 2 puff INHALATION Q4H PRN PRN (Reason: Wheezing) dulaglutide 1.5 MG/0.5 ML pen injector 1.5 mg SQ QWEEK Label Comments: INJECT THE CONTENTS OF 1 PEN SUBCUTANEOUSLY ONCE A WEEK omeprazole 40 mg Capsule,Delayed Release(Dr/Ec) 40 mg PO DAILY Referrals / Follow Up: Rose Pickard MD [Primary Care Provider] - Disposition Disposition (needs filled in before D/C Order can be placed): Home, Self Care Charges/Coding Visit Charges Inpatient E&M: 74753 Disch Hosp
== END 2022-04-28 14:40 | disposition home or self-care (01) | DRG 195 ==
LOC: ED 10:58 → MS3 04-28 12:48
PROVIDERS: Admitting Provider Internal Medicine; Emergency Provider Emergency Medicine; PCP Family Medicine; Visit Provider Internal Medicine
DX: J12.1 Respiratory syncytial virus pneumonia (principal); E11.9 Type 2 diabetes mellitus without complications; I10 Essential (primary) hypertension; E78.00 Pure hypercholesterolemia, unspecified; R11.2 Nausea with vomiting, unspecified; Z20.822 Contact with and (suspected) exposure to COVID-19; R09.02 Hypoxemia; Z79.84 Long term (current) use of oral hypoglycemic drugs; Z79.899 Other long term (current) drug therapy; Z87.891 Personal history of nicotine dependence
CPT/HCPCS: 36415; 71045; 80053; 82962; 83605; 85025; 87040; 87428; 87449; 87633; 87635; 94640; 96361; 96365; 96366; 96367; 96372; 96375; 96376; 99218; 99251; 99285; J7030; A4216; G0378; G0463; J2405; U0003; U0005

== ENCOUNTER → 2022-09-23 | Outpatient (CLI) | payer MEDICARE, SELFPAY ==
[2022-09-23 12:07] LABS: Absolute Lymphocyte Count 1.99 X10^3/uL (0.83-4.51); Absolute Neutrophil Count 3.7 X10^3/uL (2.0-7.7); Basophil# 0.04 X10^3/uL; Basophil% 0.6 % (0-1); Eosinophil# 0.26 X10^3/uL; Hematocrit 41.4 % (37-47); Hemoglobin 12.9 g/dL (12.0-15.0); Lymphocyte # 1.99 X10^3/ul (0.83-4.51); Lymphocyte % 30.8 % (19-41); Mean Corp Hgb Conc 31.2 g/dL (32-36); Mean Corpuscular Hgb 27.6 pg (27.0-32.0); Mean Corpuscular Volume 88.7 fL (81-99); Monocyte# 0.43 X10^3/uL; Monocyte% 6.6 % (0-10); NRBC Flagged by Analyzer 0 % (0-5); Neutrophil # 3.73 X10^3/uL (2.7-7.7); Neutrophil % 57.7 % (47-70); Platelet Count 245 K/mm3 (150-450); RBC Distribution Width CV 15.4 % (11.6-14.6); RBC Distribution Width SD 50.3 fl (35.1-43.9); Red Blood Count 4.67 M/mm3 (4.2-5.4); White Blood Count 6.5 K/mm3 (4.4-11.0)
[2022-09-23 12:22] LABS: ALB/GLOB Ratio 0.9 RATIO (0.9-2.4); AST(SGOT) 22 U/L (15-37); Alanine Aminotransfer ALT/SGPT 33 U/L (13-56); Albumin, Serum 3.5 g/dL (3.2-5.0); Alkaline Phosphatase 85 U/L (45-117); Anion Gap 4 (5-15); BUN 13 mg/dL (7-18); BUN/Creat Ratio 16.1 RATIO (10-20); Chloride 108 mmol/L (98-107); Cholesterol 136 mg/dL (200); EST Glomerular Filtration Rate 75 mL/min (>60); Est Glom Filt Rate - Afr Amer 91 mL/min (>60); Globulin 3.9 g/dL (2.2-4.2); Glucose 133 mg/dL (74-106); High Density Lipoprotein 48 mg/dL; Protein, Total 7.4 g/dL (6.4-8.2); Sodium Level 141 mmol/L (136-145); Triglycerides 94 mg/dL; Very Low Density Lipoprotein 19 mg/dL (5-40)
[2022-09-23 12:34] LABS: Hemoglobin A1c 5.5 % (3.8-5.6)
[2022-09-23 12:35] LABS: Microalbumin,Random Urine 12.4 mg/L (NO RANGE EST.); Microalbumin:Creatinine Ratio 6.9 mg/g CRE (<30 mg/g CRE)
== END | disposition home or self-care (01) ==
LOC: BFHLAB 08:03
PROVIDERS: PCP Family Medicine; Referring Provider Family Medicine; Visit Provider Family Medicine
DX: I10 Essential (primary) hypertension (principal); E11.9 Type 2 diabetes mellitus without complications; K21.9 Gastro-esophageal reflux disease without esophagitis
CPT/HCPCS: 36415; 80053; 80061; 82043; 82570; 83036; 85025

== ENCOUNTER → 2022-10-14 | Outpatient (CLI) | payer MEDICARE, SELFPAY ==
--- NOTE | 2022-10-14 14:48 | BI_ITS ---
MAMMOGRAPHY - BILATERAL SCREENING REASON FOR EXAM: Female, 67 years old. Routine annual screening examination. PERTINENT HISTORY: Non-contributory. Bilateral breast implants. TECHNIQUE: Digital bilateral breast umang (3D mammographic acquisition) in the CC and MLO projections. 2-D mediolateral oblique (MLO) and craniocaudad (CC) views of both breasts were obtained. CAD: Full Field Digital Mammography with Computer Added Detection was performed. COMPARISON: Comparison is made with prior examination March 05, 2021. FINDINGS: Breast Composition: The breasts are heterogeneously dense, which may obscure small masses. There are no dominant masses or suspicious calcifications. Stable appearance of the small bilateral breast implants. Stable appearance of the bilateral axial lymph nodes. No other significant abnormalities are identified. There has been no significant change since the prior study. BI/SCRN MAMM (CAD)W/UMANG BILAT IMPRESSION: Stable bilateral screening mammogram. Yearly follow-up mammogram recommended. (A) ASSESSMENT CATEGORY: BIRADS Category 2: Benign. A letter regarding these results will be sent to the patient by the facility within 30 days. Approximately 10% of breast cancers are not detected by mammography. A normal mammogram should not delay biopsy of a clinically suspicious abnormality. [id number] Electronically Signed: Iain Alejandro MD at 9:13 EDT ,
== END | disposition home or self-care (01) ==
LOC: OPBI 14:47
PROVIDERS: PCP Family Medicine; Referring Provider Family Medicine; Visit Provider Family Medicine
DX: Z12.31 Encounter for screening mammogram for malignant neoplasm of breast (principal)
CPT/HCPCS: 77063; 77067

== ENCOUNTER → 2022-11-14 | Outpatient (CLI) | payer MEDICARE, SELFPAY ==
--- NOTE | 2022-11-14 09:56 | BD_ITS ---
STUDY: DUAL ENERGY X-RAY ABSORPTIOMETRY / DXA REASON FOR EXAM: Female, 67 years old. [id number] TECHNIQUE: Bone Mineral Density (BMD) measurements of lumbar spine and bilateral hips were obtained. COMPARISON: None. FINDINGS: Lumbar Spine (L1-L4): g/cm2 (0.992) / T-score (-0.5) / Z-score (1.5) Findings are suggestive of normal bone density with a low fracture risk. Left Femur Total: g/cm2 (0.877) / T-score (-0.5) / Z-score (0.8) Left Femoral Neck: g/cm2 (0.701) / T-score (-1.3) / Z-score (0.3) Right Femur Total: g/cm2 (0.939) / T-score (0.0) / Z-score (1.4) Right Femoral Neck: g/cm2 (0.746) / T-score (-0.9) / Z-score (0.7) BD/Dexa Bone Density Study IMPRESSION: The patient is considered osteopenic as outlined below according to World [employer] Organization (WHO) criteria with a low fracture risk. Reference Information: The T-score is the number of standard deviations above or below the standard which is normal for young adults at their peak bone mineral density. The World Health Organization (WHO) interprets the T-scores as follows: Above -1 Normal bone density Between -1 and -2.5 Osteopenia Equal to / or below -2.5 Osteoporosis As a practical clinical guideline, osteopenia may be graded as follows: Mild -1 through -1.5 Moderate -1.6 through -2.0 Severe -2.1 through -2.4 The Z-score is the number of standard deviations above or below age-matched controls. A Z-score of less than -1.5 would be considered abnormal. References: 1. NIH Osteoporosis and Related Bone Diseases www osteo.org 2. International Society for Clinical Densitometry www iscd.org 3. National Osteoporosis Foundation www nof.org Electronically Signed: Iain Alejandro MD at 10:01 EDT ,
== END | disposition home or self-care (01) ==
LOC: OPBD 09:46
PROVIDERS: PCP Family Medicine; Referring Provider Family Medicine; Visit Provider Family Medicine
DX: Z13.820 Encounter for screening for osteoporosis (principal)
CPT/HCPCS: 77080

== ENCOUNTER 2023-03-04 17:18 | Emergency (ER) | payer MEDICARE, SELFPAY ==
[2023-03-04 17:19] VITALS: BP 149/81; PULSE 77; RESP 18; TEMP 36.1; O2SAT 98
[2023-03-04 17:21] VITALS: BMI 31.8
--- NOTE | 2023-03-04 17:33 | CT_ITS ---
STUDY: CT ABDOMEN AND PELVIS WITHOUT CONTRAST REASON FOR EXAM: Female, 68 years old. Pain RADIATION DOSAGE (If Supplied By Facility): CTDIvol = ( 15.57 ) mGy, DLP = ( 766.32 ) mGycm TECHNIQUE: Transaxial images were obtained from the dome of the diaphragm to the symphysis pubis without oral contrast, and without intravenous contrast. Sagittal and coronal images were reconstructed. Individualized dose optimization techniques were used for this CT. COMPARISON: None. FINDINGS: There is 0.5 cm nodule of the left lung base. The visualized portions of the heart are within normal limits. There are bilateral breast implants. Normal liver. There is non-visualization of the gallbladder, which may be secondary to either contraction or a prior cholecystectomy. Normal spleen. Normal pancreas. Normal bilateral adrenal glands. Normal right kidney. Normal left kidney. Normal visualized stomach. Normal small intestine. Normal colon. There is non-visualization of the appendix. There is atherosclerotic calcification of the abdominal aorta, without a demonstrated aneurysm. Normal inferior vena cava. Normal retroperitoneum. Normal urinary bladder. There is absence of the uterus consistent with a prior hysterectomy. There is no free fluid in the abdomen or pelvis. Normal abdominal wall. There is lumbar levoscoliosis with degenerative change of the spine. CT/Abdomen/Pelvis without Cont IMPRESSION: No obstruction. No stones or hydronephrosis. Small left lung nodule. Consider short-term follow-up and/or dedicated chest CT for further evaluation. Electronically Signed: Alen Paniagua MD at 19:08 EDT ,
[2023-03-04] MEDS: Ketorolac 30 MG/ML Syringe 15 MG IV (17:43)
[2023-03-04] MEDS: 0.9% Normal Saline (1000mL) 500 ML 1000 ML IV (17:43)
[2023-03-04] MEDS: Morphine 4 MG/ML Syringe IV ×2 (17:44→18:44)
[2023-03-04] MEDS: Ondansetron 4 MG/2 ML Vial IV (17:44)
[2023-03-04 17:53] LABS: Bacteria 0 SEEN /hpf (None Seen); Mucous, Urine 0 SEEN /hpf (<or=2+); Red Blood Cells-Urine 0 SEEN /hpf (0-5)
[2023-03-04 18:01] LABS: Absolute Lymphocyte Count 2.28 X10^3/uL (0.83-4.51); Absolute Neutrophil Count 4.5 X10^3/uL (2.0-7.7); Basophil# 0.06 X10^3/uL; Basophil% 0.8 % (0-1); Eosinophil# 0.27 X10^3/uL; Eosinophils% 3.5 % (0-5); Hemoglobin 13.1 g/dL (12.0-15.0); Lymphocyte # 2.28 X10^3/ul (0.83-4.51); Lymphocyte % 29.2 % (19-41); Mean Corp Hgb Conc 32.8 g/dL (32-36); Mean Corpuscular Hgb 29.1 pg (27.0-32.0); Mean Corpuscular Volume 88.9 fL (81-99); Mean Platelet Vol. 10.5 fl (6.2-12.0); Monocyte# 0.66 X10^3/uL; Monocyte% 8.4 % (0-10); NRBC Flagged by Analyzer 0 % (0-5); Neutrophil # 4.54 X10^3/uL (2.7-7.7); Platelet Count 223 K/mm3 (150-450); RBC Distribution Width SD 45.1 fl (35.1-43.9); White Blood Count 7.8 K/mm3 (4.4-11.0)
[2023-03-04 18:02] LABS: POSITIVE COUNT NO; POSITIVE DIFFERENTIAL NO; POSITIVE MORPHOLOGY NO
[2023-03-04 18:09] LABS: Color, Urine Yellow (Yellow); Glucose, Dipstick Normal (Normal); Ketone-Dipstick Negative (Negative); Leukocyte Esterase-Dipstick Negative /ul (Negative); Nitrite-Dipstick Negative (Negative); Occult Blood-Urine Negative /ul (Negative); Protein-Dipstick Negative (Negative); Urine Bilirubin Dipstick Negative (Negative); Urine Clarity Clear (Clear); Urine Urobilinogen 4 mg/dl (Normal)
--- NOTE | 2023-03-04 18:21 | ED.VIS.BACK ---
HPI History of Present Illness Chief Complaint: Back Informant: patient Narrative Narrative: Complains of left back/flank pain. Patient states that about an hour and a half ago she started to get pain in the left flank. It is rather sharp. It does not radiate anywhere. She has never been lightheaded or dizzy. Not syncopal or presyncopal. She states she has had this a few times in the past. She has been given some meds for it but it never really did much. She cannot think of anything she did to hurt it. She does not have a history of kidney stones. But she does have a history of removal of a benign mass in her back about 10 years ago. She has a pretty significant large surgical scar from that. But states she is really had no problems since except this occasional pain. But she does not know if it is related to the surgery. She has not had any urinary symptoms including no darkening of the urine. I looked at her urine in the room and its pale yellow. PFSH PFS Medical History Diabetes Former smoker High cholesterol Migraines Home Medications albuterol sulfate 90 mcg/actuation aerosol inhaler 1 - 2 puff inhalation Q4H PRN PRN Wheezing 09/18/20 [History Last Taken Unknown] dulaglutide 1.5 mg/0.5 mL subcutaneous pen injector 1.5 mg SQ QWEEK Check with primary doctor 09/18/20 [History Last Taken 04/26/22 18:00] glimepiride 4 mg tablet 4 mg PO BID Check with primary doctor 09/18/20 [History Last Taken 04/27/22 08:00] losartan 50 mg tablet 20 mg PO DAILY Check with primary doctor 09/18/20 [History Last Taken 04/27/22 08:00] omeprazole 40 mg capsule,delayed release 40 mg PO DAILY Check with primary doctor 04/27/22 [History Last Taken 04/27/22 08:00] pioglitazone 30 mg tablet 30 mg PO DAILY #0 tabs 04/28/22 [Rx Last Taken Unknown] amoxicillin 600 mg-potassium clavulanate 42.9 mg/5 mL oral suspension (Augmentin ES-) 5 ml PO BID 7 days #70 mL 04/29/22 [Rx Last Taken Unknown] cyclobenzaprine 10 mg tablet 10 mg PO TID PRN Muscle Spasm #20 TABLETS 03/04/23 [Rx Last Taken Unknown] oxycodone 5 mg/5 mL oral solution 5 mg (5 mL) PO Q6H PRN pain 3 days #60 mL 03/04/23 [Rx Last Taken Unknown] semaglutide 0.25 mg or 0.5 mg (2 mg/3 mL) subcutaneous pen injector (Ozempic) 0.25 mg subcut 03/04/23 [History Last Taken Unknown] Allergy/AdvReac Type Severity Reaction Status Date / Time No Known Allergies Allergy Verified 03/04/23 17:18 Family History Mother No problems noted. Father No problems noted. Surgical History H/O: hysterectomy Previous back surgery Social History household members: spouse Smoking Status: Former smoker alcohol intake: never substance use type: does not use ROS ROS ED ROS Narrative A complete review of systems was performed and is negative except as documented in the history of present illness. Some specific details below. Constitutional: No recent fevers or chills. [place] fine prior to the onset of pain. EYE: No visual complaints or pain. ENT: No difficulty swallowing. No swelling. No pain. CV: No chest pain or palpitations. Respiratory: No dyspnea. No hemoptysis. No difficulty taking breaths. Denies any breathing issues whatsoever or worsening of the pain with breathing. GI: No anterior abdominal pain. No radiation to the front. No nausea vomiting or diarrhea. : No frequency dysuria or hematuria. Musculoskeletal: No recent trauma. See history of present illness. Skin: No rash. Nondiaphoretic. Neuro: No weakness or numbness. Ocular symptoms. Endocrine: No polyuria or polydipsia. EXAM Physical Exam Narrative Exam Narrative: CONSTITUTIONAL: Patient is nontoxic in appearance. Patient is up walking around the room. She puts her hand on her left flank. She is pacing a bit. She is able to stop and sit or lay for exam without difficulty. HEENT: No notable trauma. Mucous membranes moist. No sinus tenderness. No indication of pain with swallowing. EYES: No conjunctival injection. No proptosis. CARDIOVASCULAR: Regular rate. Regular rhythm. No notable murmur. No JVD. RESPIRATORY: No respiratory distress. Breathing is unlabored. No wheezes. No rhonchi. No rales. No pain with a deep breath. Saturations are totally normal at 98% on room air showing no hypoxia. GASTROINTESTINAL: Not distended. Bowel sounds are normal. No tenderness. No guarding. No rebound. No palpable mass. No bruit. Is overall benign. GENITOURINARY: No tenderness over the bladder. It has altered anatomy due to the surgery in her left back area. There is some discomfort near the left flank. But there is no mass. I see no rash. There is some pain with motion but most of it is just painful by itself. MUSCULOSKELETAL: Atraumatic. No peripheral edema. No cord. No tenderness along the deep venous system. No asymmetry. NEUROLOGICAL: Patient is alert and appropriate. No focal deficit noted. SKIN: No noted rashes. No diaphoresis. PSYCHIATRIC: Patient is calm. Mood is appropriate. Const Vital Signs: 03/04/23 17:19 Temperature 96.9 F L Temperature Source Temporal Pulse Rate 77 Respiratory Rate 18 Blood Pressure 149/81 H Blood Pressure Mean 103 Pulse Ox 98 Oxygen Delivery Method Room Air MDM MDM MDM Narrative Medical decision making narrative: Patient CBC shows no acute abnormality. Patient's electrolytes show no acute abnormality. Patient's glucose was mildly elevated at 149. This can be followed up and she is on meds for this. Graph patient's urinalysis shows no acute process. My independent interpretation of her CT of the abdomen without contrast no acute process. There is no inflammatory changes. Vascular structures look normal size. Kidney does not look inflamed. I do not see any hydronephrosis or kidney stone. Final reading is similar. They do note a small left nodule that can have follow-up. Patient still defines the pain over on the left side. It hurts to move or palpate. She has had this a couple other times. I am beginning to wonder if this may be related to her surgery and her surgical scar there. It almost seems like it spasms. She will be good for a while then it will tighten up. It has not changed position. She is not lightheaded or syncopal. I do not think this needs angiogram at all. We will get her on meds for pain and muscle relaxant. I will try to get liquids that she cannot tolerate pills. Daughter states that the patient does have a very low tolerance for pain but I do think the patient is somewhat uncomfortable. Patient IV infiltrated and getting morphine. Were not sure if we could even get this in. I will give her a small IM dose of pain meds prior to leaving. She may have a little trouble getting pain meds filled tonight. Lab Data Attestation: I reviewed the patient's lab results. Labs: Laboratory Results - last 24 hr 03/04/23 17:40 WBC 7.8 RBC 4.50 Hgb 13.1 Hct 40.0 MCV 88.9 MCH 29.1 MCHC 32.8 RDW Std Deviation 45.1 H RDW Coeff of Marilyn 14.0 Plt Count 223 MPV 10.5 Immature Gran % (Auto) 0.100 Neut % (Auto) 58.0 Lymph % (Auto) 29.2 [place] % (Auto) 8.4 Eos % (Auto) 3.5 Baso % (Auto) 0.8 Absolute Neuts (auto) 4.5 Absolute Lymphs (auto) 2.28 Nucleated RBC % 0 Sodium 142 Potassium 4.0 Chloride 107 Carbon Dioxide 28.0 Anion Gap 7 BUN 15 Creatinine 0.89 Est GFR (MDRD) Af Amer 81 Est GFR (MDRD) Non-Af 67 BUN/Creatinine Ratio 16.8 Glucose 149 H Calcium 9.2 Urine Color Yellow Urine Clarity Clear Urine pH 7.0 Ur Specific [place] 1.010 Urine Protein Negative Urine Glucose (UA) Normal Urine Ketones Negative Urine Occult Blood Negative Urine Nitrite Negative Urine Bilirubin Negative Urine Urobilinogen 4 H Ur Leukocyte Esterase Negative Urine RBC 0 SEEN Urine WBC 0-5 SEEN Ur Squamous Epith Cells 0-5 SEEN Urine Bacteria 0 SEEN Urine Mucus 0 SEEN Radiography Diagnostic Testing: Clinical Impression(s) from Imaging Studies Abdomen/Pelvis CT 03/04/23 17:33 IMPRESSION: No obstruction. No stones or hydronephrosis. Small left lung nodule. Consider short-term follow-up and/or dedicated chest CT for further evaluation. Electronically Signed: Alen Paniagua MD at 19:08 EDT , Discharge Plan Triage Chief Complaint: Back ED Provider: Hernan Kaur Dx/Rx/DC Orders Clinical Impression: Left flank pain Instructions: ED Back Spasm, No Trauma Prescriptions: New oxycodone 5 mg/5 mL solution 5 mg PO Q6H PRN (Reason: pain) 3 Days Qty: 60 0RF cyclobenzaprine [cyclobenzaprine] 10 mg tablet 10 mg PO TID PRN (Reason: Muscle Spasm) Qty: 20 0RF No Action losartan 50 MG tablet 20 mg PO DAILY glimepiride 4 MG tablet 4 mg PO BID albuterol sulfate 1 PUFF inhaler 1 - 2 puff INHALATION Q4H PRN PRN (Reason: Wheezing) dulaglutide 1.5 MG/0.5 ML pen injector 1.5 mg SQ QWEEK Patient Comments: INJECT THE CONTENTS OF 1 PEN SUBCUTANEOUSLY ONCE A WEEK omeprazole 40 mg Capsule,Delayed Release(Dr/Ec) 40 mg PO DAILY pioglitazone 30 mg Tablet 30 mg PO DAILY Qty: 0 0RF amoxicillin-pot clavulanate [Augmentin ES-600] 600-42.9 mg/5 mL suspension for reconstitution 5 ml PO BID 7 Days Qty: 70 0RF Ozempic 0.25 mg or 0.5 mg (2 mg/3 mL) pen injector 0.25 mg SUBCUT Primary Care Provider: Rose Pickard Referrals: Rose Pickard MD [Primary Care Provider] - 3-5 Days Disposition Disposition: Home, Self Care
[2023-03-04 18:22] LABS: Anion Gap 7 (5-15); BUN 15 mg/dL (7-18); BUN/Creat Ratio 16.8 RATIO (10-20); Calcium,Total 9.2 mg/dL (8.5-10.1); Chloride 107 mmol/L (98-107); Creatinine, Serum 0.89 mg/dL (0.55-1.02); EST Glomerular Filtration Rate 67 mL/min (>60); Est Glom Filt Rate - Afr Amer 81 mL/min (>60); Glucose 149 mg/dL (74-106); Sodium Level 142 mmol/L (136-145)
[2023-03-04 18:24] LABS: Squamous Epithelial Cells - UA 0-5 SEEN /hpf (5-10); White Blood Cells 0-5 SEEN /hpf (0-5)
[2023-03-04] MEDS: Orphenadrine 60 MG/2 ML Ampul IM (18:46)
--- NOTE | 2023-03-04 18:51 | ED.RN ---
PT IV INFILTRATED. PT HAS SMALL SIZE AREA OF SWELLING. AWARE. STATES JUST FINISH WITH NORFLEX IM
[2023-03-04] MEDS: HYDROmorphone 0.5 MG/0.5 ML SYRINGE IM (19:42)
[2023-03-04 19:45] VITALS: BP 156/64; PULSE 64; RESP 17; O2SAT 98
== END 2023-03-04 20:10 | disposition home or self-care (01) ==
PROVIDERS: Emergency Provider Emergency Medicine; PCP Family Medicine; Visit Provider Emergency Medicine
DX: R10.9 Unspecified abdominal pain (principal); E11.9 Type 2 diabetes mellitus without complications; E78.00 Pure hypercholesterolemia, unspecified; Z87.891 Personal history of nicotine dependence
CPT/HCPCS: 74176; 80048; 81001; 85025; 96361; 96372; 96374; 96375; 96376; 99284; J7040; J2405

== ENCOUNTER → 2023-03-19 | Outpatient (CLI) | payer MEDICARE, SELFPAY ==
--- NOTE | 2023-03-19 13:01 | RAD_ITS ---
STUDY: X-RAY - THORACIC SPINE REASON FOR EXAM: Female, 68 years old. Back pain. TECHNIQUE: 3 view(s) of the thoracic spine were obtained. COMPARISON: None. FINDINGS: Osteopenia. Normal kyphosis of the thoracic spine. No substantial scoliosis. Mild diffuse intervertebral disc space narrowing with small osteophytes most marked in the lower thoracic and upper lumbar regions. Normal soft tissues. RAD/Thoracic Spine 3 Views IMPRESSION: Osteopenia with diffuse mild lower thoracic and lumbosacral spondylosis. Electronically Signed: Ifeanyi Virgen MD at 14:38 EDT ,
== END | disposition home or self-care (01) ==
LOC: MTRAD 13:00
PROVIDERS: PCP Family Medicine; Referring Provider Nurse Practitioner Family; Visit Provider Nurse Practitioner Family
DX: M54.6 Pain in thoracic spine (principal)
CPT/HCPCS: 72072

== ENCOUNTER 2023-03-28 14:45 | Outpatient (RCR) | payer MEDICARE, SELFPAY ==
--- NOTE | 2023-03-28 15:55 | HP.PTEVAL_ITS ---
Patient's Visit Information Visit Information Visit Information: DANIS NEAL is a 68 year old F referred to Physical Therapy by Dr. Chantal Garza DO with a diagnosis of THORACIC PAIN. Date of Evaluation: 03/28/23 Physical Therapist: Tayo Richardson PT, Cert MDT, OCS Visit Plan Frequency: 2x /Week Duration: 4 Weeks Plan: PT INTERVETIONS POSTURAL EX'S ,THORACIC MOBLITY ,THORACIC STRENGTHENING/DLS ADN MODALTIES PRN Subjective Subjective: This 68 y/o female presents to physical therapy with thoracic pain. Patient has had thoracic pain ~ 1month left thoracic without etiology of pain. Thus went to ER 1 month ago [facility] -. Patient seen Dr x-rays DDD. Patient had injection of tramadol. Patient prescribed pain medication. Patient has no pain past 3 days. Aggravating factors bending mopping floor . Alleviating factors rest and gradually went away. No pain with breathing. Denies paresthesia/tingling. Coughing/sneezing - ,but has of being +. Bowel/bladder-. Patient sleeping okay but if pain unable to sleep. Patient condition affects QOL and function when has pain. Patient goals know why pain occurs and eliminate pain from returning. Patient had mass removed on left years ago. SOCIAL: VOCATION: Retired Objective Objective: POSTURE: mild forward posture GAIT: reciprocal pattern NEURO: intact denies parestehesia/tingling AROM BUE: WFL MMT: BUE 4/5 THORACIC ROM: flexion min loss extension min loss ,rotation min loss-no pain CERVICAL ROM: min loss all planes motion -nom pain RIB MOBILITY: WNL no pain BREATHING : normal no pain Special Tests Thoracic Sitting: Flexion - Mechanical Response: No effect Thoracic Sitting: Flexion - Symptoms During Testing: No effect Thoracic Sitting: Flexion - Symptoms After Testing: No effect Thoracic Sitting: Extension - Mechanical Response: No effect Thoracic Sitting: Extension - Symptoms During Testing: No effect Thoracic Sitting: Extension - Symptoms After Testing: No effect Thoracic Sitting: Right rotation - Mechanical Response: No effect Thoracic Sitting: Right Rotation - Symptoms During Testing: No effect Thoracic Sitting: Right Rotation - Symptoms After Testing: No effect Thoracic Sitting: Left rotation - Mechanical Response: No effect Thoracic Sitting: Left Rotation - Symptoms During Testing: No effect Thoracic Sitting: Left Rotation - Symptoms After Testing: No effect Balance/Special Test Scores Oswestry Low Back Score: 22 Goals Goal 1:: Patient to be I with HEP for thoracic spine Goal Time Frame: 4-6 Weeks Goal 2:: Patient to improve posture for ADLS's Goal 3:: Patient to demonstrate 50% improvement with function and decrease pain. Goal Time Frame: 4-6 Weeks Goal 4:: Patient for thoracic ROM for function of recovery for ADLS Goal Time Frame: 4-6 Weeks Goal 5:: Patient improve back oswestry score by 5 points to improve function Goal Time Frame: 4-6 Weeks Rehabilitation Potential Physical Therapy Diagnosis: This patient developed episode of left thoracic pain without etiology of pain with except mopping ,does have h/o removing begin mass left side with pain NW with motion testing Rehabilitation Potential: Good Anticipated Interventions Patient/Client Instruction: Educate patient on: Condition and Plan of Care For the Purpose of:: To decrease pain, To increase ROM, To improve muscle performance and motor function, To increase tolerance to activity/con dition/position, To improve performance and independence with ADL's, To improve ability of physical actions for home/community/work/leisure, To improve health of tissue, To decrease soft tissue restriction, To increase flexibility/ROM and To prevent re-injury Therapeutic Exercise to Include: Strength training, Body mechanics, Postural training, Flexibilty training and Dynamic Lumbar Stabilization For the Purpose of:: To decrease pain, To increase ROM, To improve muscle performance and motor function, To increase tolerance to activity/condition/po sition, To improve ability of physical actions for home/community/work/leisure, To improve health of tissue, To decrease soft tissue restriction, To increase flexibility/ROM and To reduce risk of recurrence Text: Thank you for the opportunity to evaluate your patient. For Medicare and Medicare HMO plans, please review the plan of care and approve it. It will need to be FAXED BACK to us at [phone] for Medicare purposes. For Medicare only, by signing this I certify the plan of care. Please let me know if there are questions or concerns regarding this plan of care. Physician Signature: Date:
== END 2023-03-28 19:00 | disposition home or self-care (01) ==
LOC: PT 14:45
PROVIDERS: PCP Family Medicine; Visit Provider Family Medicine
DX: M54.6 Pain in thoracic spine (principal)
CPT/HCPCS: 97162

== ENCOUNTER → 2023-06-10 | Outpatient (CLI) | payer MEDICARE, SELFPAY ==
--- NOTE | 2023-06-10 12:44 | CT_ITS ---
STUDY: CT CHEST WITHOUT CONTRAST REASON FOR EXAM: Female, 68 years old. PULMONARY NODULE RADIATION DOSAGE (If Supplied By Facility): CTDIvol = ( 19.77 ) mGy, DLP = ( 677.41 ) mGycm TECHNIQUE: Transaxial imaging was performed without the administration of intravenous contrast material. Multiplanar coronal and sagittal images were reformatted. Individualized dose optimization techniques were used for this CT. COMPARISON: Comparison is made with prior chest radiograph dated April 27, 2022. FINDINGS: CHEST Bilateral breast prostheses. Small benign-appearing bilateral axillary lymph nodes. There is a 4.2 mm noncalcified nodule in the posterior aspect of the right upper lobe. 12 month follow-up is recommended. There is no demonstrated pleural abnormality. Normal heart and pericardium. There are small lymph nodes within the mediastinum, which are normal in size and morphology most compatible with reactive lymph hyperplasia. Normal hilar regions. Normal unenhanced pulmonary arteries. Normal aorta arch and descending thoracic aorta. Normal osseous structures. The patient is status post cholecystectomy. CT/Chest without Contrast IMPRESSION: 4.2 mm noncalcified nodule in the posterior aspect of the right upper lobe. 12 month follow-up is recommended. Electronically Signed: Iain Alejandro MD at 14:15 EST ,
== END | disposition home or self-care (01) ==
PROVIDERS: PCP Family Medicine; Referring Provider Family Medicine; Visit Provider Family Medicine
DX: R91.1 Solitary pulmonary nodule (principal)
CPT/HCPCS: 71250

== ENCOUNTER → 2023-07-31 | Outpatient (CLI) | payer MEDICARE, SELFPAY ==
--- NOTE | 2023-07-31 10:04 | RAD_ITS ---
INDICATION: DOUGLAS SPLINTS, LEG PAIN EXAMINATION/TECHNIQUE: X-RAY - LEFT XR Tibia/Fibula 2 Views 2 VIEWS COMPARISON: No relevant prior comparison study available FINDINGS: SOFT TISSUES: No soft tissue swelling or gas. No radiopaque foreign body. BONES/JOINTS: No acute fracture or subluxation.. Normal alignment of the knee and ankle. Preservation of the joint space.. No sclerotic or destructive changes observed. No periosteal reaction. RAD/Tibia & Fibula 2 Views IMPRESSION: No fracture or malalignment. No periosteal reaction. Electronically Signed: Alexis Ernadnez MD at 6:21 EST ,
--- NOTE | 2023-07-31 10:05 | RAD_ITS ---
INDICATION: DOUGLAS SPLINTS, LEG PAIN EXAMINATION/TECHNIQUE: X-RAY - RIGHT XR Tibia/Fibula 2 Views 2 VIEWS COMPARISON: No relevant prior comparison study available FINDINGS: SOFT TISSUES: No soft tissue swelling or gas. No radiopaque foreign body. BONES/JOINTS: No acute fracture or subluxation.. Normal alignment at the knee and ankle.. Preservation of the joint space. Small osteophytes of the medial and lateral compartments of the knee.. No sclerotic or destructive changes observed. No periosteal reaction. RAD/Tibia & Fibula 2 Views IMPRESSION: No fracture or malalignment. Electronically Signed: Alexis Ernandez MD at 6:21 EST ,
== END | disposition home or self-care (01) ==
LOC: MTRAD 10:03
PROVIDERS: PCP Family Medicine; Referring Provider Podiatrist; Visit Provider Podiatrist
DX: M79.661 Pain in right lower leg (principal); M79.662 Pain in left lower leg
CPT/HCPCS: 73590

== ENCOUNTER → 2023-10-16 | Outpatient (CLI) | payer MEDICARE, SELFPAY ==
--- NOTE | 2023-10-16 09:50 | BI_ITS ---
MAMMOGRAPHY - BILATERAL SCREENING REASON FOR EXAM: Female, 68 years old. Routine annual screening examination. PERTINENT HISTORY: Non-contributory. Bilateral breast implants. TECHNIQUE: Digital bilateral breast umang (3D mammographic acquisition) in the CC and MLO projections. 2-D mediolateral oblique (MLO) and craniocaudad (CC) views of both breasts were obtained. CAD: Full Field Digital Mammography with Computer Added Detection was performed. COMPARISON: Comparison is made with prior study dated October 14, 2022. FINDINGS: Breast Composition: The breasts are heterogeneously dense, which may obscure small masses. There are no dominant masses or suspicious calcifications. Stable appearance of the bilateral breast implants. Stable appearance of the bilateral hilar lymph nodes. No other significant abnormalities are identified. There has been no significant change since the prior study. BI/SCRN MAMM (CAD)W/UMANG BILAT IMPRESSION: Stable bilateral screening mammogram. Yearly follow-up mammogram recommended. (A) ASSESSMENT CATEGORY: BIRADS Category 2: Benign. A letter regarding these results will be sent to the patient by the facility within 30 days. Approximately 10% of breast cancers are not detected by mammography. A normal mammogram should not delay biopsy of a clinically suspicious abnormality. [id number] Electronically Signed: Iain Alejandro MD at 12:19 EDT ,
== END | disposition home or self-care (01) ==
LOC: OPBI 09:49
PROVIDERS: PCP Family Medicine; Referring Provider Family Medicine; Visit Provider Family Medicine
DX: Z12.31 Encounter for screening mammogram for malignant neoplasm of breast (principal)
CPT/HCPCS: 77063; 77067

== ENCOUNTER → 2024-02-27 | Outpatient (CLI) | payer MEDICARE, SELFPAY ==
[2024-02-27 12:51] LABS: Absolute Lymphocyte Count 2.05 X10^3/uL (0.83-4.51); Absolute Neutrophil Count 4.3 X10^3/uL (2.0-7.7); Basophil# 0.05 X10^3/uL; Basophil% 0.7 % (0-1); Eosinophil# 0.31 X10^3/uL; Eosinophils% 4.3 % (0-5); Hematocrit 40.8 % (37-47); Lymphocyte # 2.05 X10^3/ul (0.83-4.51); Lymphocyte % 28.4 % (19-41); Mean Corp Hgb Conc 31.9 g/dL (32-36); Mean Corpuscular Hgb 27.5 pg (27.0-32.0); Mean Corpuscular Volume 86.3 fL (81-99); Mean Platelet Vol. 10.9 fl (6.2-12.0); Monocyte# 0.52 X10^3/uL; Monocyte% 7.2 % (0-10); NRBC Flagged by Analyzer 0 % (0-5); Neutrophil # 4.26 X10^3/uL (2.7-7.7); Neutrophil % 59.1 % (47-70); Platelet Count 254 K/mm3 (150-450); RBC Distribution Width CV 13.4 % (11.6-14.6); RBC Distribution Width SD 42.6 fl (35.1-43.9); Red Blood Count 4.73 M/mm3 (4.2-5.4); White Blood Count 7.2 K/mm3 (4.4-11.0)
[2024-02-27 13:15] LABS: Microalbumin:Creatinine Ratio 7.5 mg/g CRE (<30 mg/g CRE)
[2024-02-27 13:33] LABS: ALB/GLOB Ratio 0.9 RATIO (0.9-2.4); AST(SGOT) 14 U/L (15-37); Alanine Aminotransfer ALT/SGPT 19 U/L (13-56); Albumin, Serum 3.7 g/dL (3.2-5.0); Alkaline Phosphatase 109 U/L (45-117); Anion Gap 7 (5-15); BUN 17 mg/dL (7-18); Calcium,Total 9.5 mg/dL (8.5-10.1); Chloride 105 mmol/L (98-107); Cholesterol 177 mg/dL (200); Creatinine, Serum 0.85 mg/dL (0.55-1.02); EST Glomerular Filtration Rate 71 mL/min (>60); Est Glom Filt Rate - Afr Amer 86 mL/min (>60); Globulin 3.9 g/dL (2.2-4.2); Glucose 162 mg/dL (74-106); High Density Lipoprotein 53 mg/dL; Protein, Total 7.6 g/dL (6.4-8.2); Sodium Level 138 mmol/L (136-145); Triglycerides 102 mg/dL; Very Low Density Lipoprotein 20 mg/dL (5-40)
== END | disposition home or self-care (01) ==
LOC: BFHLAB 10:33
PROVIDERS: PCP Family Medicine; Referring Provider Family Medicine; Visit Provider Family Medicine
DX: I10 Essential (primary) hypertension (principal); E11.9 Type 2 diabetes mellitus without complications; K21.9 Gastro-esophageal reflux disease without esophagitis
CPT/HCPCS: 36415; 80053; 80061; 82043; 82570; 85025

== ENCOUNTER → 2024-06-17 | Outpatient (CLI) | payer MEDICARE, SELFPAY ==
--- NOTE | 2024-06-17 12:48 | CT_ITS ---
STUDY: CT CHEST WITHOUT CONTRAST REASON FOR EXAM: Female, 69 years old. SOLITARY PULM NODULE, YEARLY FOLLOW UP, BREAST IMPLANTS, HX-CERVICAL CA RADIATION DOSAGE (If Supplied By Facility): CTDIvol = ( 14.01 ) mGy, DLP = ( 466.45 ) mGycm TECHNIQUE: Transaxial imaging was performed without the administration of intravenous contrast material. Multiplanar coronal and sagittal images were reformatted. Individualized dose optimization techniques were used for this CT. COMPARISON: No relevant priors. FINDINGS: CHEST Stable appearance of the bilateral breast implants. Stable fat-containing bilateral axillary lymph nodes. Stable faintly seen 4 mm nodule in the right upper lobe as seen on axial image #40. There is no demonstrated pleural abnormality. Mild coronary artery calcification. There are small lymph nodes within the mediastinum, which are normal in size and morphology most compatible with reactive lymph hyperplasia. Normal hilar regions. Normal unenhanced pulmonary arteries. Normal aorta arch and descending thoracic aorta. Normal osseous structures. The patient is status post cholecystectomy. CT/Chest without Contrast IMPRESSION: 4 mm noncalcified nodule in the posterior aspect of the right upper lobe as described. No follow-up recommended. Electronically Signed: Iain Alejandro MD at 9:04 EST ,
== END | disposition home or self-care (01) ==
PROVIDERS: PCP Family Medicine; Referring Provider Family Medicine; Visit Provider Family Medicine
DX: R91.1 Solitary pulmonary nodule (principal)

== ENCOUNTER → 2024-10-18 | Outpatient (CLI) | payer MEDICARE, SELFPAY ==
--- NOTE | 2024-10-18 12:05 | BI_ITS ---
EXAM: SCRN MAMM (CAD)W/UMANG BILAT DATE: 10/18/2024 CLINICAL HISTORY: F, Age 69 y/o , SCREENING Patient has bilateral breast implants. BREAST CANCER RISK ASSESSMENT: Has not been calculated. TECHNIQUE: Bilateral screening digital breast tomosynthesis with 2D and 3D images. Pushback Olegario CC and pushback Olegario MLO views of the right and left breast were also performed. Computer aided detection. COMPARISON: Prior exam(s) dated 10/16/2023 and 10/14/2022. FINDINGS: TISSUE DENSITY: The breast tissue is heterogenously dense, which may obscure small masses. Bilateral Breast Mammographic Findings: There are no suspicious masses, suspicious cluster of microcalcifications, architectural distortion or secondary signs of malignancy identified in either breast. Both breast implants appear to be intact. Benign-appearing round microcalcifications are seen in both breasts. BI/SCRN MAMM (CAD)W/UMANG BILAT IMPRESSION: OVERALL FINAL ASSESSMENT: BIRADS 2 BENIGN FINDING RECOMMENDATION: Routine annual follow-up in 1 Year A letter with findings and recommendations will be mailed to the patient. Reading Location: [id number]
== END | disposition home or self-care (01) ==
LOC: OPBI 12:03
PROVIDERS: PCP Family Medicine; Referring Provider Family Medicine; Visit Provider Family Medicine
DX: Z12.31 Encounter for screening mammogram for malignant neoplasm of breast (principal)
CPT/HCPCS: 77063; 77067

== ENCOUNTER → 2025-03-04 | Outpatient (CLI) | payer MEDICARE, SELFPAY ==
[2025-03-04 10:43] LABS: Hematocrit 39.0 % (37-47); Hemoglobin 12.8 g/dL (12.0-15.0); Immature Granulocytes Count 0.010 X10^3/uL (0.0-0.0); Mean Corp Hgb Conc 32.8 g/dL (32-36); Mean Corpuscular Volume 86.1 fL (81-99); Mean Platelet Vol. 10.2 fl (6.2-12.0); NRBC Flagged by Analyzer 0 % (0-5); Platelet Count 266 K/mm3 (150-450); RBC Distribution Width CV 14.3 % (11.6-14.6); RBC Distribution Width SD 44.9 fl (35.1-43.9); Red Blood Count 4.53 M/mm3 (4.2-5.4); White Blood Count 7.2 K/mm3 (4.4-11.0)
[2025-03-04 11:14] LABS: Creatinine, Urine (random) 246.00 mg/dL (28.00-217.00); Microalbumin,Random Urine 19.3 mg/L (<20 mg/L)
[2025-03-04 12:47] LABS: AST(SGOT) 18 U/L (<=31); Alanine Aminotransfer ALT/SGPT 11 U/L (<=34); Albumin, Serum 4.1 g/dL (3.4-4.8); Alkaline Phosphatase 99 U/L (35-104); Anion Gap 13 (5-15); BUN 11 mg/dL (4-19); BUN/Creat Ratio 15.2 RATIO (10-20); Calcium,Total 9.4 mg/dL (7.6-11.0); Carbon Dioxide 24.5 mmol/L (21.0-32.0); Chloride 105 mmol/L (98-108); Cholesterol 158 mg/dL (<=200); Globulin 2.9 g/dL (2.2-4.2); Glucose 131 mg/dL (70-99); Low Density Lipoprotein Calc. 84 mg/dL; Potassium 4.1 mmol/L (3.3-5.1); Triglycerides 147 mg/dL; Very Low Density Lipoprotein 29 mg/dL (5-40); cholesterol:hdl ratio screen 3.57
== END | disposition home or self-care (01) ==
LOC: MTLAB 09:01
PROVIDERS: PCP Family Medicine; Referring Provider Family Medicine; Visit Provider Family Medicine
DX: E11.9 Type 2 diabetes mellitus without complications (principal); I10 Essential (primary) hypertension; K21.9 Gastro-esophageal reflux disease without esophagitis
CPT/HCPCS: 36415; 80053; 80061; 82043; 82570; 85025